=== PATIENT | female | born 1975 | race Two or more races ===

== ENCOUNTER 2017-12-29 09:01 | Emergency (ER) | payer OTHER ==
[2017-12-29 09:09] VITALS: BP 154/93; PULSE 112; TEMP 100; BMI 27.1
--- NOTE | 2017-12-29 09:51 | PDOC ---
History of Present Illness - General Chief Complaint: Cold Symptoms Stated Complaint: HEADACHES, COUGH Time Seen by Provider: 12/29/17 09:25 History Source: Patient Exam Limitations: No Limitations - History of Present Illness Initial Comments: 12/29/17 09:46 42-year-old woman without significant past medical history who presents emergency Department with 2 days of chills, body aches, frontal headache, nausea , moist cough. Patient states that approximately 2 in the morning she woke up and felt very warm and took Tylenol. She started to feel better after taking the Tylenol now back to sleep. She woke up this morning she started for warming and took Tylenol. Patient denies any sore throat, chest pain, shortness of breath, dizziness, vomiting, diarrhea, dysuria. Past History - Past Medical History Allergies/Adverse Reactions: Allergies Allergy/AdvReac Type Severity Reaction Status Date / Time No Known Allergies Allergy Verified 12/29/17 09:05 Home Medications: Ambulatory Orders Oseltamivir Phosphate [Tamiflu -] 75 mg PO BID #10 capsule 12/29/17 COPD: No Other medical history: DENIES. - Suicide/Smoking/Psychosocial Hx Smoking History: Never smoked Review of Systems - Review of Systems Able to Perform ROS?: Yes Is the patient limited Romanian proficient: No Constitutional: Yes: See HPI HEENTM: Yes: See HPI Respiratory: Yes: See HPI Cardiac (ROS): No: Symptoms Reported ABD/GI: Yes: See HPI : No: Symptoms Reported Musculoskeletal: Yes: See HPI Integumentary: No: Symptoms Reported Neurological: No: Symptoms reported *Physical Exam - Vital Signs Last Vital Signs Temp Pulse Resp BP Pulse Ox 100 F H 112 H 19 154/93 100 12/29/17 09:05 12/29/17 09:05 12/29/17 09:05 12/29/17 09:05 12/29/17 09:05 - Physical Exam General Appearance: Yes: Appropriately Dressed. No: Apparent Distress HEENT: positive: TMs Normal, Pharyngeal Erythema. negative: Tonsillar Exudate, Tonsillar Erythema Neck: positive: Trachea midline, Supple Respiratory/Chest: positive: Lungs Clear, Normal Breath Sounds, Accessory Muscle Use. negative: Respiratory Distress Cardiovascular: positive: Regular Rhythm, Tachycardia. negative: Murmur Gastrointestinal/Abdominal: positive: Normal Bowel Sounds, Soft. negative: Tender Musculoskeletal: positive: Normal Inspection Extremity: positive: Normal Inspection Integumentary: positive: Normal Color, Dry, Warm Neurologic: positive: Alert, Normal Response, Motor Strength 5/5 Medical Decision Making - Medical Decision Making 12/29/17 09:48 A/P: 42-year-old woman with 2 days of flulike symptoms. TMs leavitt with appropriate light reflex. External auditory canals patent Pharyngeal erythema present. No exudates noted. Lungs clear to auscultation bilaterally Patient is tachycardic. S1 and S2 present. No murmur, rub or gallop present. Most likely influenza-like illness. I'll treat the patient with Tamiflu and instructed patient on management of symptoms Discharge *DC/Admit/Observation/Transfer Diagnosis at time of Disposition: Influenza-like illness - Discharge Dispostion Disposition: HOME Condition at time of disposition: Stable Admit: No - Prescriptions Prescriptions: Oseltamivir Phosphate [Tamiflu -] 75 mg PO BID #10 capsule - Referrals Referrals: Grace Wylie MD [Primary Care Provider] - - Patient Instructions Additional Instructions: Rest, drink lots of fluids: Teas, water, soups, Pedialyte Saltwater gargles Steamy showers/seem to face break up mucus Avoid contact with others until fevers and cough resolved Lots of handwashing and good hygiene Continue [id number] medications for symptomatic relief Tylenol or Motrin for fever and pain Tamiflu 75mg twice a day for 5 days Followup with private physician in one to 2 days as needed Return to emergency department for worsened symptoms, fevers, dehydration [place]cansa, jason muchos lquidos: ts, agua, sopas, Pedialyte Grgaras de agua salada Las duchas con agua parecen romper la mucosidad Evite el contacto con otras personas hasta que se resuelvan las fiebres y la tos Mucho lavado de sarah y buena higiene Continuar tomando medicamentos sin receta para aliviar los sntomas Tylenol o Motrin para la fiebre y el dolor Tamiflu 75 mg dos veces al da navneet 5 sigala Seguimiento con un mdico privado en doug o dos sigala segn sea necesario Regrese al departamento de emergencias por sntomas empeorados, fiebre, deshidratacin - Post Discharge Activity Forms/Work/School Notes: Back to Work
== END 2017-12-29 09:53 | disposition home or self-care (01) ==
LOC: JERFT 09:01
DX: J11.1 Influenza due to unidentified influenza virus with other respiratory manifestations (principal)
CPT/HCPCS: 99281-25